=== PATIENT | male | born 1965 | race Caucasian/White ===

== ENCOUNTER 2023-09-24 21:23 | Emergency (ER) | payer OTHER, SELFPAY ==
[2023-09-24 21:27] VITALS: BP 197/116
[2023-09-24 22:28] VITALS: BMI 30.5
[2023-09-24 23:00] VITALS: BP 155/93
--- NOTE | 2023-09-24 23:25 | ED.GENMED ---
History of Present Illness
General
Chief Complaint: Swelling
Source: patient and family
Exam Limitations: none
Time Seen by Provider: 09/24/23 23:18
Nursing documentation reviewed up to this point in time: agreed with
Travel History
Have you had any contact with someone who has COVID-19?: No
Do you have any symptoms of coronavirus? Fever > 100 degrees, chills, cough, shortness of breath, sore throat, loss of taste or smell, muscle aches, or headache?: No
History of Present Illness
History of Present Illness:
58-year-old male hypertension works in the [employer] field week to 10 days of pain in his left elbow initially thought he was may be bitten by a spider jesi than worsened today fairly severe with pain with range of motion of his elbow some swelling
into his hand no fevers or some redness and warmth no history of gout or arthritis no nausea or vomiting denies any direct trauma to the area
Review of Systems
Review of Systems
All Other Systems: Not applicable
Constitutional: Denies fever or fatigue
Respiratory: Reports no symptoms
Cardiac: Reports no symptoms
ABD/GI: Reports no symptoms
: Reports no symptoms
Musculoskeletal: Reports joint pain and edema
Skin: Reports other (Redness and warmth)
Phy Exam
Physical Exam
Physical Exam:
Physical Exam
General: Hypertensive male nontoxic
Neck: No jaundice
Heart: Regular
Lungs: no acute respiratory distress.
Neuro: alert and oriented. no focal neurological deficits
Skin: no rash
Psychiatric: well kept. interactive and cooperative
Extremities: Swelling warmth edema left elbow on the left hand mild swelling the left olecranon bursa
Scores
Heart Failure Risk
Heart Failure Risk Score: Not Applicable
Course
Orders/Labs/Results
Orders:
Orders
09/24/23 23:24
Ketorolac [Toradol] 30 mg IV NOW STA
09/24/23 23:38
Complete Blood Count/With Diff Urgent
Comprehensive Metabolic Panel Urgent
Lactic Acid Q4H
Comment: CANCEL 2nd LACTIC ACID IF 1st LACTIC ACID IS LESS THAN 2
Lyme Progressive Urgent
Blood Culture Q30M
DYLON Source: Blood/Venous
Specimen Description:
09/24/23 23:42
CeFAZolin 2 GRAM [Ancef] 2 grams in 10 ml IV NOW
09/25/23 00:00
Blood Culture Q30M
DYLON Source: Blood/Venous
Specimen Description:
CR Elbow - Left Min 3 Views Urgent
Reason For Exam: swelling
09/25/23 00:30
Oxycodone/Acetaminophen [Percocet 5/325] 1 tablet PO NOW STA
09/25/23 00:38
Sling Left-Treatment ONCE
09/25/23 03:30
Lactic Acid Q4H
Comment: CANCEL 2nd LACTIC ACID IF 1st LACTIC ACID IS LESS THAN 2
Abnormal Lab Results
09/24/23
23:38
WBC 11.7 H 10^3/uL
(4.8-10.8)
MCV 94.8 H fL
(80.0-94.0)
MCH 32.7 H pg
(27.0-31.0)
Abs Immat Gran (auto) 0.1 H 10^3/uL
(0-0.05)
Absolute Neuts (auto) 8.3 H 10^3/uL
(1.4-6.5)
Absolute Monos (auto) 0.8 H 10^3/uL
(0.1-0.6)
Lymphocytes % 19.9 L %
(20.5-51.1)
BUN 21 H mg/dl
(9-20)
Glucose 121 H mg/dl
(70-99)
Calcium 10.5 H mg/dl
(8.4-10.2)
09/24/23 23:38
09/24/23 23:38
Vital Signs
Initial and Last Documented VS:
Initial Vital Signs
Temp Pulse Resp BP Pulse Ox
97.3 F 76 18 197/116 100
09/24/23 21:27 09/24/23 21:27 09/24/23 21:27 09/24/23 21:27 09/24/23 21:27
Last Documented Vital Signs
Temp Pulse Resp BP Pulse Ox
97.3 F 77 18 155/93 99
09/24/23 21:27 09/24/23 23:00 09/24/23 23:00 09/24/23 23:00 09/24/23 23:00
MDM/Problems Addressed
Differential Diagnosis Includes:
Cellulitis bursitis occult fracture septic arthritis less likely
MDM/Problems Addressed:
Swollen elbow forearm and hand
Chronic conditions affecting care: HTN
Acute Exacerbation and/or Progression of Chronic Illness: HTN
*Critical Care Note
Total Time (30-74mins, 75-104mins- exclusive of procedures): Not Applicable
Update Note
Update Note:
Update labs noted x-ray noted no fracture looks like some soft tissue swelling but no obvious gas
Formal report pending
I did offer the patient admission for cellulitis politely declined
ED Attending Note
-
Portions of this chart may have been created with voice recognition software.� Occasional wrong word or��sound alike� substitutions may have occurred due to the inherent limitations of voice recognition software.
Discharge Plan
Departure
Patient Disposition: Home (Routine Discharge)
Date of Disposition: 09/25/23
Time of Disposition: 00:29
Patient with high blood pressure during this ER visit?: Yes
Condition: Good
Covid-19: Not Applicable
Discharge Problem:
Cellulitis, Bursitis
Instructions: Cellulitis (Skin Infection), Adult ED, Bursitis ED, BLOOD PRESSURE
Prescriptions:
New
ibuprofen 600 mg tablet
600 mg PO Q6H PRN (Reason: fever or pain) Qty: 20 0RF
oxycodone-acetaminophen [Percocet] 5-325 mg tablet
1 tab PO Q4HPRN PRN (Reason: pain) Qty: 10 0RF
cephalexin 750 mg capsule
750 mg PO Q6H 10 Days Qty: 40 0RF
Referrals:
NONE,* [Family Provider] -
Activity Restrictions/Additional Instructions:
Motrin every 6-8 hours for pain
Tylenol or Percocet every 4-6 hours for pain do not exceed #8 in any 24-hour period is able to contain acetaminophen
Antibiotics as prescribed
Follow-up with your family doctor return to the ER for worsening symptoms
Interventions
Interventions:
*Risk Screen - Suicide Last Done: 09/24/23 21:27
*General Assessment Last Done: 09/24/23 23:14
*Neglect/Abuse Screening Last Done: 09/24/23 21:27
ED- Fall Risk Assessment Last Done: 09/24/23 23:17
*ED COVID-19 Vaccine History Last Done: 09/24/23 23:14
*Nursing Disposition Last Done: 09/25/23 00:46
ED- Cardiac Assessment Last Done: 09/24/23 22:28
ED-Musculoskeletal Assessment Last Done: 09/24/23 22:28
ED- Pulmonary Assessment Last Done: 09/24/23 22:28
ED-Peripheral Vascular Assessment Last Done: 09/24/23 22:28
ED-Skin Assessment Last Done: 09/24/23 22:28
Discharge Date and Time
Print Language: LATVIAN
[2023-09-24] MEDS: TORADOL 30 MG IV (23:41)
[2023-09-24 23:49] LABS: % Basophils 0.5 % (0-2); % Eosinophils 0.9 % (0-6); % Immature Granulocytes 0.5 % (0-0.5); % Lymphocytes 19.9 % (20.5-51.1); % Monocytes 6.7 % (1.7-9.3); % Neutrophils 71.5 % (42.2-75.2); Absolute Basophils 0.1 10^3/uL (0-0.2); Absolute Eosinophils 0.1 10^3/uL (0-0.7); Absolute Immature Granulocytes 0.1 10^3/uL (0-0.05); Absolute Lymphocytes 2.3 10^3/uL (1.2-3.4); Absolute Monocytes 0.8 10^3/uL (0.1-0.6); Absolute Neutrophils 8.3 10^3/uL (1.4-6.5); Hemoglobin 16.2 g/dL (13.0-18.0); Mean Corp Hgb Conc. 34.5 g/dL (33.0-37.0); Mean Corpuscular Hgb 32.7 pg (27.0-31.0); Mean Corpuscular Volume 94.8 fL (80.0-94.0); Mean Platelet Volume 9.2 fL (7.4-10.4); Nucleated Red Blood Cells % 0 % (-); Platelet Count 316 10^3/uL (130-400); Red Blood Cell Count 4.96 10^6/uL (4.70-6.10); Red Cell Dist. Width 12.5 % (11.5-14.5); White Blood Cell Count 11.7 10^3/uL (4.8-10.8)
[2023-09-24] MEDS: ANCEF 10 IV (23:53)
[2023-09-25 00:01] LABS: ALT (SGPT) 34 U/L (0-50); AST (SGOT) 34 U/L (17-59); Alkaline Phosphatase 83 U/L (38-126); Blood Urea Nitrogen 21 mg/dl (9-20); Calcium 10.5 mg/dl (8.4-10.2); Carbon Dioxide 26 mmol/L (22-30); Chloride 104 mmol/L (98-107); Estimated Creatinine Clearance 108 ml/min; Glucose 121 mg/dl (70-99); Potassium 4.4 mmol/L (3.5-5.1); Sodium 140 mmol/L (135-145); Total Bilirubin 0.7 mg/dl (0.2-1.3); Total Protein 8.2 g/dl (6.3-8.2); eGFR > 60.00
[2023-09-25 00:02] LABS: Lactic Acid 1.7 mmol/L (0.7-2.0)
[2023-09-25] MEDS: PERCOCET 5/325 1 TABLET PO (00:36)
[2023-09-26 15:35] LABS: Lyme Antibody Screen, EIA Negative (Negative)
== END 2023-09-25 00:51 | disposition home or self-care (01) ==
LOC: EMR 21:23
PROVIDERS: EMERGENCY PHYSICIAN Emergency Medicine
DX: L03.114 Cellulitis of left upper limb (principal); M70.32 Other bursitis of elbow, left elbow; I10 Essential (primary) hypertension
CPT/HCPCS: 99284; 96374; 96375; 73080; 80053; 83605; 85025; 86618; 87040